=== PATIENT | male | born 1975 | race Two or more races ===

== ENCOUNTER 2017-07-12 10:57 | Emergency (ER) | payer SELFPAY ==
[2017-07-12] MEDS ORDERED: IBUPROFEN 800 MG TABLET PO ONE (12:01)
--- NOTE | 2017-07-12 12:02 | ER Document Report ---
HPI - HPI Patient complains to provider of: back pain Pain Level: 2 Context: Patient is a 41-year-old male presents emergency department complaining of bilateral shoulder and neck pain. Patient states that he was at the gym yesterday and went from lifting 250 pounds to 300. He states he woke up this morning sore and unable to move his shoulders but as his the days progressed he states that it feels much much better and is now pain-free. He states he has not taken any Motrin use any ice or heat. Otherwise he denies any direct trauma , fall to his back. Denies any urinary/stool incontinence, saddle anesthesia. Able to ambulate without any difficulty. 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 - CONSTITUTIONAL Constitutional: DENIES: Fever, Chills - EENT EENT: DENIES: Sore Throat - CARDIOVASCULAR Cardiovascular: DENIES: Chest pain - GASTROINTESTINAL Gastrointestinal: DENIES: Abdominal Pain - URINARY Urinary: DENIES: Dysuria Past Medical History - Social History Smoking Status: Never Smoker Chew tobacco use (# tins/day): No Frequency of alcohol use: None Drug Abuse: None Family History: Reviewed & Not Pertinent Patient has suicidal ideation: No Patient has homicidal ideation: No Renal/ Medical History: Denies: Hx Peritoneal Dialysis Vertical Provider Document - CONSTITUTIONAL Notes: PHYSICAL EXAM GENERAL: Alert, interacts well. HEAD: Normocephalic, atraumatic. EYES: Pupils equal, round, and reactive to light. Extraocular movements intact. EXTREMITIES: Moves all 4 extremities spontaneously. No edema, radial and dorsalis pedis pulses 2/4 bilaterally. No cyanosis. Back: No Cervical, thoracic, lumbar muscular tenderness, no spinous process tenderness, deformities or step-offs. No CVA tenderness. Patient able to ambulate without any difficulty. NEUROLOGICAL: Alert and oriented x4. Normal speech. PSYCH: Normal affect, normal mood. SKIN: Warm, dry, normal turgor. No rashes or lesions noted. - INFECTION CONTROL TRAVEL OUTSIDE OF THE [place] IN LAST 30 DAYS: No - RESPIRATORY O2 Sat by Pulse Oximetry: 97 Course - Re-evaluation Re-evalutation: 07/12/17 12:00 The patient is a 41-year-old male who presents with back pain without signs of spinal cord compression, cauda equina syndrome, infection, aneurysm, or other serious etiology. Physical exam and history consistent with a muscle strain likely related to lifting at the gym yesterday. The patient is neurologically intact. Given the extremely low risk of these diagnoses further testing and evaluation for these possibilities does not appear to be indicated at this time. The patient has been instructed to return if the symptoms worsen or change in any way. - Vital Signs Vital signs: Temp Pulse Resp BP Pulse Ox 99.0 F 65 18 123/66 97 07/12/17 11:01 07/12/17 11:01 07/12/17 11:01 07/12/17 11:01 07/12/17 11:01 Discharge - Discharge Clinical Impression: Back pain Qualifiers: Back pain location: thoracic back pain Chronicity: acute Back pain laterality: bilateral Qualified Code(s): M54.6 - Pain in thoracic spine Condition: Good Disposition: ADMITTED INPATIENT Instructions: Muscle Strain ([facility]), Warm Packs ([facility]), Use of Apvw-Hin-Prrfyit Ibuprofen ([facility]) Forms: Special Work Note
[2017-07-12 12:12] VITALS: BP 141/71
== END 2017-07-12 12:12 | disposition home or self-care (01) ==
LOC: ER 10:57
DX: M54.6 Pain in thoracic spine (principal); M54.2 Cervicalgia; M25.511 Pain in right shoulder; M25.512 Pain in left shoulder
CPT/HCPCS: 99283